=== PATIENT | female | born 1955 | race Caucasian/White ===

== ENCOUNTER 2016-11-14 07:24 | Day surgery (SDC) | payer OTHER ==
[2016-11-13 09:00] LABS: MANUAL DIFF NEEDED? NO
[2016-11-13 09:19] LABS: BASO% 0.3 % (0.0-0.8); EOS# 0.14 X1000 (0.0-0.7); EOS% 2.2 % (0.0-10.0); HEMATOCRIT 43.6 % (37.0-47.0); HEMOGLOBIN 14.8 g/dL (12.0-16.0); IMM GRAN# 0.02 X1000 (0.0-0.04); IMM GRAN% 0.3 % (0.0-0.5); LYMPH# 2.33 X1000 (1.2-3.4); LYMPH% 36.9 % (20.5-51.1); MCH 28.8 PG (27-31); MCHC 33.9 g/dL (33-37); MONO# 0.61 X1000 (0.11-0.59); MONO% 9.7 % (1.7-9.3); MPV 9.1 FL (7.4-10.4); NEUT% 50.6 % (42.2-75.2); PLT 303 X1000 (130-400); RBC 5.13 XMIL (4.2-5.4)
--- NOTE | 2016-11-13 21:52 | HISTORY AND PHYSICAL ---
HISTORY: The patient is a 58-year-old female with a history of prior sling placement several years ago by Dr. Rivers. Patient has had problems with urgency and incontinence since that time. She also had incisional hernia and had to have a second operation to correct this that was done at the time of an abdominoplasty. The patient states that she has also been told that she has multiple myeloma but it has been downgraded to a smoldering issue and is not currently active. The patient is having a problem with feeling a lot of pelvic pressure. Upon evaluation she was found have POP-Q stage prolapse with the leading edge AB at +1, C was -6. She does have some lateral detachment apically especially on the left and I think a lot of her pressure is actually related to the apical defect. Rectally she has some thinning of the distal posterior compartment and I suspect a distal correction is also going to be indicated. She had a prior sling placed and has pretty good stabilization of the UV neck. Patient has also had a prior evaluation by Dr. Yepez. We have offered her as has Dr. Yepez pessary eagle tissue correction, vaginal mesh reconstruction as well as the robotic ASC. When we evaluated this I discussed with her that I could not guarantee that we could do it abdominally using the robot but I was willing to try if she understood the risk of possibly needing an open procedure. I also offered her an evaluation at [facility] which she did not want to do. She also refused pessary management and has a very active lifestyle, and wishes to proceed with surgical intervention. PAST SURGERY HISTORY: Positive for vaginal hysterectomy, bilateral salpingo- oophorectomy, incisional hernia repair with mesh, right total thyroidectomy, appendectomy and 3 bunion repairs. She is noted to be a para 2-0-0-2. She is followed gynecologically by Dr. Linus Segura. CURRENT MEDICATIONS: Temple Thyroid 60, multiple hormones that are compounded, multiple p.r.n. medications. FAMILY HISTORY: Positive for breast cancer in her mother. SOCIAL HISTORY: The patient has a very active lifestyle. 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 Negative for tobacco, ETOH, or drugs. PHYSICAL EXAMINATION: GENERAL: BMI is 24. HEENT: Normocephalic, atraumatic. PERRLA. EOMI. No thyromegaly. CARDIOVASCULAR: Regular rate and rhythm without murmur, gallop, or rub. PULMONARY: Clear to auscultation and percussion. ABDOMEN: Soft. GENITOURINARY: Shows examination as noted above. ASSESSMENT AND PLAN: The patient with vaginal vault prolapse most of it being an apical issue and she is wishing to proceed with surgical intervention. We discussed this at length. She understands and wishes to proceed. MTDD
[2016-11-14] MEDS ORDERED: TRANSDERM-SCOP ONE (07:45)
[2016-11-14] MEDS ORDERED: KEFZOL 1 GM/D5W 50 ML ONE (07:45)
[2016-11-14] MEDS ORDERED: LR 1,000 ML ONE ×2 (07:45→14:05)
[2016-11-14] MEDS ORDERED: REGLAN ONE (07:45)
[2016-11-14] MEDS ORDERED: PEPCID ONE (07:45)
[2016-11-14] MEDS ORDERED: D10W 1,000 ML ONE (10:20)
[2016-11-14] MEDS ORDERED: MARCAINE 0.25% PF/EPI 1:200,000 ONE (10:20)
[2016-11-14 11:21] LABS: URINE MICRO REVIEW NEEDED? NO; URINE SOURCE CATH
[2016-11-14 11:27] LABS: UR EPITHELIAL CELLS <10 /HPF (<10); URINE BACTERIA NEGATIVE /HPF; URINE RBC <10 /HPF (<10); URINE WBC <10 /HPF (<10)
[2016-11-14 11:28] LABS: BILIRUBIN URINE NEGATIVE (NEGATIVE); BLOOD URINE NEGATIVE (NEGATIVE); COLOR YELLOW; GLUCOSE URINE NEGATIVE (NEGATIVE); LEUKOCYTES URINE NEGATIVE (NEGATIVE); NITRITE URINE NEGATIVE (NEGATIVE); PH URINE 7.5; PROTEIN URINE TRACE mg/dL (NEGATIVE); SP GRAVITY URINE 1.009; TURBIDITY URINE CLEAR (CLEAR); UROBILINOGEN URINE NORMAL (NORMAL)
[2016-11-14] MEDS ORDERED: DILAUDID IV ONE ×3 (13:50→14:05)
[2016-11-14] MEDS ORDERED: NEOSTIGMINE ONE (14:03)
[2016-11-14] MEDS ORDERED: ZOFRAN ONE (14:04)
[2016-11-14] MEDS ORDERED: TORADOL ONE (14:04)
[2016-11-14] MEDS ORDERED: LASIX ONE (14:04)
[2016-11-14] MEDS ORDERED: DECADRON ONE (14:05)
[2016-11-14] MEDS ORDERED: ROBINUL ONE (14:05)
[2016-11-14] MEDS ORDERED: QUELICIN (DOSE) ONE (14:05)
[2016-11-14] MEDS ORDERED: NORCURON ONE (14:05)
[2016-11-14] MEDS ORDERED: XYLOCAINE-MPF 2% ONE (14:05)
[2016-11-14] MEDS ORDERED: PHENERGAN IM PRN (14:33)
[2016-11-14] MEDS ORDERED: ZOFRAN ODT PO PRN (14:33)
[2016-11-14] MEDS ORDERED: DEMEROL IM PRN (14:33)
[2016-11-14] MEDS ORDERED: NORCO-5 PO PRN (14:33)
[2016-11-14] MEDS ORDERED: FENTANYL ONE (15:04)
[2016-11-14] MEDS ORDERED: VERSED ONE (15:04)
[2016-11-14] MEDS ORDERED: DIPRIVAN 1% ONE (15:04)
--- NOTE | 2016-11-14 15:10 | OPERATIVE NOTE ---
PROCEDURE DATE : 11/14/2016 PREOPERATIVE DIAGNOSIS: Symptomatic pelvic organ prolapse. POSTOPERATIVE DIAGNOSIS: Symptomatic pelvic organ prolapse. PROCEDURE: 1. Da Grayson abdominal sacrocolpopexy. 2. Extensive lysis of adhesions. SURGEON: Dr. Edwardo Cooney. ANESTHESIA: General. ESTIMATED BLOOD LOSS: 10 mL. HISTORY: The patient is a 61-year-old female who had undergone prior hysterectomy, prior vaginal reconstruction, prior midurethral sling, abdominoplasty, and then subsequent abdominal mesh procedure, who was having increasing problems with symptomatic pelvic organ prolapse. Her body habitus was concerning for possible failure if [place] [employer] [place] tissue repair was done and, using a vaginal mesh on her I did not think was going to be a frey idea. She refused pessary management and so wished to proceed toward sacrocolpopexy. The risks and benefits of this procedure have been discussed. OPERATIVE FINDINGS: The patient was found have extension adhesions to the anterior abdominal wall consistent with her prior abdominal mesh procedure. Her pelvis was relatively clean. She was found to have a moderate amount of obesity and varicosities in the deep pelvis. She was found to have a normal bladder after completion of the procedure with bilateral efflux of urine from both ureteral orifices. OPERATIVE PROCEDURE: The patient was taken to operating room and placed in supine position. After adequate general anesthesia was obtained, she was placed in low Yellofin stirrups, and her abdomen and vagina was prepped and draped in the usual fashion. A supraumbilical incision was made and a 12 mm port and sheath were introduced through this incision into the abdominal cavity. Pelvic contents were visualized as was a large amount of anterior adhesions. Because of this, the next incision was actually the assistance port in the right upper quadrant, and this was also done blindly. After doing this, we then were able to visualize the midline adhesions to the anterior abdominal wall mesh much better. We placed our right robotic port under direct visualization and then began performing extensive lysis of adhesions from the right side. We spent approximately 30- 40 minutes in the first portion of the case doing lysis of adhesions to have the anterior abdominal wall cleared. After doing this, we then were able to put the left-sided ports in without any difficulty, again under direct visualization. All ports were placed after infiltration with 0.25% Marcaine with epinephrine. At this time, the patient was placed in deep Trendelenburg position. Conde catheter was placed and the EEA sizers were placed within the vagina and the rectum. The robot was docked in the usual fashion. With hot scissors in the right hand, bipolar gyrus in the left, and the third arm had a Cardiere grasper placed. At this time, we turned our attention towards dissecting the vesicovaginal space. The patient had a large fat pad with redundant bladder in this area, and we used the third arm to actually elevate this out to get traction/countertraction developed for our dissection. We dissected 10-12 cm anteriorly. Posteriorly we dissected 12-14 cm in a similar fashion. At this time, we then went up to the sacral promontory. Though she was moderately obese in the pelvis, she actually had a relatively clear sacral promontory that could be easily identified, and there was only approximately 2 cm of presacral fat. It was easy to dissect out the sacral promontory. We created our tunnel in typical fashion and then trimmed our mesh to the appropriate sizing for the anterior and posterior defects. Needle drivers were placed in arm 1 and arm 2. The mesh was introduced into the abdomen that had been trimmed. We started in the vesicovaginal space, placing the mesh in this space and then securing it with Dover-Rory sutures. All sutures were thrown with an initial surgeon's throw and then four half throws after this. We placed approximately 12 sutures anteriorly and approximately 12 sutures posteriorly in a similar fashion. The mesh was lying smoothly in both the anterior and posterior compartments. At this time, the third arm of the mesh was brought over the sacral promontory and 2 new sutures were placed through the mesh into the anterior longitudinal ligament. It was excellently secured. Excessive mesh was trimmed. At this time, we then used V-Loc suture to reperitonealize the mesh starting at the promontory and working all the way down and closing off the posterior portion as well so that there was no exposure to mesh at all. After completion of this, we . There was noted to be a small area of bleeding on the left side and cautery was utilized for better hemostasis of this area. After doing this, all other pedicles were noted to be hemostatic and decision was made to terminate this portion of the procedure. All equipment was removed and the robot was removed. At this time, we used a Ton- Thomasen closure system to close the supraumbilical port as well as the right upper quadrant port, 0 Vicryl ligature was utilized to close the fascia in deep layer. The abdomen was deflated of CO2 and all other ports were removed under direct visualization. 4.0 Vicryl ligature was utilized in subcuticular fashion to reapproximate all skin incisions. Vaginally, we closely inspected the vagina. It had excellent support in the anterior and apical compartments. Distally on the posterior side there was some thinning, but I was concerned about possible dyspareunia and so we did not perform any further vaginal correction in the distal posterior compartment. The remainder of the exam looked excellent. The Conde catheter was removed and the bladder as filled at approximately 250 mL of D10. There was no evidence of any suture material or mesh. No evidence of any type of thermal injury to the bladder. Both ureteral orifices were found to be effluxing urine without any difficulty. A Conde catheter was placed. The patient was taken out of [facility]. She was awakened and taken to the recovery room with vital signs stable.
[2016-11-14] MEDS: LR 1,000 ML IV SCH ×2 (15:55→22:05)
--- NOTE | 2016-11-14 18:16 | PROGRESS NOTE ---
DATE: 11/14/2016 SUBJECTIVE: Patient is now approximately 4 hours after having robotic abdominal sacrocolpopexy. She is moderately nauseated when trying to eat and drink. OBJECTIVE: Afebrile. Vital signs are stable. PLAN: Routine postoperative care. Will plan on discharge tomorrow a.m. after voiding trial.
[2016-11-14] MEDS: TORADOL IV SCH (18:59)
[2016-11-14] MEDS ORDERED: PERIDEX MT SCH (21:00)
[2016-11-14] MEDS ORDERED: COLACE PO SCH (21:00)
[2016-11-15] MEDS: TORADOL IV SCH ×2 (00:50→06:57)
--- NOTE | 2016-11-15 06:15 | DISCHARGE SUMMARY ---
ADMISSION DATE: 11/14/2016 DISCHARGE DATE: 11/15/2016 PRINCIPAL DIAGNOSIS: Pelvic organ prolapse. HISTORY: The patient is a 61-year-old female with a history of having a prior reconstruction and mid urethral sling. He was struggling with apical and anterior descent. He was admitted for surgical intervention. HOSPITAL COURSE: The patient underwent a robotic abdominal sacrocolpopexy. A sling was not placed because of her prior sling placement. Blood loss at the time of surgery was approximately 10 mL. Her postoperative course has been uncomplicated. She is being discharged home after completion of her voiding trial with instructions for follow up in 3 weeks. DISCHARGE MEDICATIONS: Tramadol and Colace. DISCHARGE INSTRUCTIONS: She was instructed on regular diet and decreased activity.
[2016-11-15] MEDS: LR 1,000 ML IV SCH (06:57)
[2016-11-15 08:03] VITALS: BP 145/69
[2016-11-15] MEDS ORDERED: THYROID PO SCH (09:00)
== END 2016-11-15 11:02 | disposition home or self-care (01) ==
LOC: OPS 07:24 → UNDOADMOB 14:07 → 4N 14:07 → UNDODISOB 11-15 11:02 → OPS 11-15 11:02
PROVIDERS: ATTEND Obstetrics & Gynecology
DX: N81.89 Other female genital prolapse (principal); Z85.79 Personal history of other malignant neoplasms of lymphoid, hematopoietic and related tissues
CPT/HCPCS: 36415; 81001; 85025; 94761; 94799; C1781; J0330; J0690; J1100; J1170; J1885; J1940; J2250; J2405; J2550; J3010; J7120; J2710